=== PATIENT | male | born 1955 | race Caucasian/White ===

== ENCOUNTER 2017-05-16 15:41 | Inpatient (IN) | payer OTHER, MEDICAID ==
[~2017-05-16] VITALS: Ht 160 cm; Wt 76.2 kg
[2017-05-16] MEDS ORDERED: MORPHINE SULFATE 4 MG/ML CPJ (NOT FOR IM USE) IV STA (16:05)
[2017-05-16] MEDS ORDERED: ONDANSETRON HCL 4MG/2ML VIAL IV STA (16:05)
[2017-05-16] MEDS ORDERED: FUROSEMIDE 40MG/4ML VIAL IVP ONE (16:15)
[2017-05-16 16:46] LABS: BASOPHILS % 0.7 % (0.0-2.0); EOSINOPHILS % 1.2 % (0.0-5.0); HEMATOCRIT. 40.9 % (42.0-52.0); LYMPHOCYTES % 13.4 % (20.0-50.0); MEAN CORPUSCULAR VOLUME 99.1 fL (80.0-94.0); MEAN PLATELET VOLUME 8.6 fl (7.4-10.4); MONOCYTES % 10.7 % (2.0-8.0); PLATELET 177 x1000/uL (130-400); RED BLOOD CELL COUNT 4.12 mill/uL (4.7-6.1); RED CELL DISTRIBUTION WIDTH 12.5 % (11.6-14.6)
[2017-05-16 16:52] LABS: CHLORIDE 99 mEq/L (98-107)
[2017-05-16 16:53] LABS: INR 1.1
[2017-05-16 16:58] LABS: CARBON DIOXIDE 23 mEq/L (21-32); ETHANOL BLOOD < 10 mg/dL
[2017-05-16 17:03] LABS: TROPONIN I 0.05 ng/mL (0.00-0.04)
[2017-05-16 20:12] LABS: CLARITY URINE CLOUDY (CLEAR); COLOR URINE YELLOW (YELLOW); GLUCOSE URINE NEGATIVE (NEGATIVE); KETONES URINE NEGATIVE (NEGATIVE); LEUKOCYTE ESTERASE URINE NEGATIVE (NEGATIVE); NITRITE URINE NEGATIVE (NEGATIVE); OCCULT BLOOD URINE 3+ (NEGATIVE); PROTEIN URINE 1+ (NEGATIVE); SPECIFIC GRAVITY URINE 1.009 (1.005-1.030); UROBILINOGEN URINE 0.2 E.U./dL (0.2-1.0)
[2017-05-16 20:27] LABS: *AMPHETAMINES SCREEN URINE NEGATIVE (NEGATIVE); *BARBITURATES SCREEN URINE NEGATIVE (NEGATIVE); *BENZODIAZEPINES SCREEN URINE NEGATIVE (NEGATIVE); *COCAINE SCREEN URINE NEGATIVE (NEGATIVE); CANNABINOID URINE SCREEN NEGATIVE (NEGATIVE); METHADONE URINE SCREEN NEGATIVE (NEGATIVE); OPIATES URINE SCREEN NEGATIVE (NEGATIVE); PHENCYCLIDINE URINE SCREEN NEGATIVE (NEGATIVE)
[2017-05-16] MEDS ORDERED: DIPHENHYDRAMINE 50MG/ML VIAL IV PRN (20:45)
[2017-05-16] MEDS ORDERED: CLONIDINE 0.1MG TABLET PO PRN (20:45)
[2017-05-16] MEDS ORDERED: MAGNESIUM/ALUMINUM HYDROXIDE/SIMETHICONE 30ML UDC PO PRN (20:45)
[2017-05-16] MEDS ORDERED: ACETAMINOPHEN 325MG TABLET PO PRN (20:45)
[2017-05-16] MEDS ORDERED: ONDANSETRON HCL 4MG/2ML VIAL IV PRN (20:45)
[2017-05-16] MEDS ORDERED: HYDROCODONE/APAP 7.5/325MG 1 TAB TABLET PO PRN (21:00)
[2017-05-17 01:00] VITALS: BP 149/67
[2017-05-17 04:00] VITALS: BP 125/67
[2017-05-17] MEDS: MORPHINE SULFATE 4 MG/ML CPJ (NOT FOR IM USE) IV PRN ×2 (04:52→09:14)
[2017-05-17] MEDS: SODIUM CHLORIDE 0.9% INJ 3ML FLUSH IVF SCH ×2 (04:52→14:00)
[2017-05-17 08:00] VITALS: BP 137/68
[2017-05-17] MEDS ORDERED: FUROSEMIDE 40MG/4ML VIAL IVP SCH (09:00)
[2017-05-17] MEDS ORDERED: POTASSIUM CHLORIDE 20MEQ TABLET SR PO SCH (09:00)
[2017-05-17 12:00] VITALS: BP 166/86
[2017-05-17] MEDS ORDERED: LIDOCAINE HCL 1% 20ML VIAL (Pyxis) INJ ONE (13:36)
[2017-05-17] MEDS ORDERED: SODIUM BICARBONATE 4.2% 5 MEQ/10 ML DISP.SYRIN IV ONE (13:36)
[2017-05-17 16:00] VITALS: BP 127/53
[2017-05-17] MEDS ORDERED: IPRATROPIUM/ALBUTEROL 0.5-3(2.5)MG/3ML NEB HHN PRN (16:15)
[2017-05-17] MEDS ORDERED: MULTIVITAMINS,THER W-MINERALS TABLET PO SCH (16:15)
[2017-05-17] MEDS ORDERED: THIAMINE HCL 100MG TABLET PO SCH (16:15)
[2017-05-17] MEDS ORDERED: FOLIC ACID 1MG TABLET PO SCH (16:15)
[2017-05-17 17:41] VITALS: BP 127/53
== END 2017-05-17 18:10 | disposition home or self-care (01) | DRG 432 ==
LOC: ER 16:29 → EDBEDREQ 19:13 → MERGE 19:32 → 6WST 19:32 → EDBEDREQ 19:46 → ENRESERV 23:05
PROVIDERS: ADMIT Internal Medicine; ATTEND Internal Medicine
PROC: 0W9G3ZZ Drainage of Peritoneal Cavity, Percutaneous Approach (ICD-10-PCS; principal; 2017-05-17)
DX: K70.31 Alcoholic cirrhosis of liver with ascites (principal); E43 Unspecified severe protein-calorie malnutrition; J96.00 Acute respiratory failure, unspecified whether with hypoxia or hypercapnia; J98.11 Atelectasis; E87.70 Fluid overload, unspecified; F32.9 Major depressive disorder, single episode, unspecified; I10 Essential (primary) hypertension; F17.210 Nicotine dependence, cigarettes, uncomplicated; R74.0 Nonspecific elevation of levels of transaminase and lactic acid dehydrogenase [LDH]; Z68.29 Body mass index [BMI] 29.0-29.9, adult; Z72.89 Other problems related to lifestyle
CPT/HCPCS: 36415; 49083; 71010; 74000; 80053; 80305; 81001; 83605; 83690; 83880; 84484; 85025; 85610; 93005; 93970; 96374; 96375; 99285; G0482; J1940; J2270; J2405; J3490

== ENCOUNTER 2017-06-10 10:50 | Inpatient (IN) | payer OTHER, MEDICAID ==
[~2017-06-10] VITALS: Ht 160 cm; Wt 71.2 kg
[2017-06-10 16:14] LABS: CHLORIDE 98 mEq/L (98-107)
[2017-06-10 16:16] LABS: BASOPHILS % 0.7 % (0.0-2.0); EOSINOPHILS % 1.4 % (0.0-5.0); HEMATOCRIT. 38.7 % (42.0-52.0); HEMOGLOBIN. 13.6 g/dL (14.0-18.0); LYMPHOCYTES % 10.8 % (20.0-50.0); MEAN CORPUSCULAR HEMOGLOBIN 34.1 pg (28.0-32.0); MEAN PLATELET VOLUME 7.8 fl (7.4-10.4); MONOCYTES % 9.1 % (2.0-8.0); PLATELET 218 x1000/uL (130-400); RED BLOOD CELL COUNT 3.99 mill/uL (4.7-6.1); RED CELL DISTRIBUTION WIDTH 12.5 % (11.6-14.6)
[2017-06-10 16:21] LABS: INR 1.2; PARTIAL THROMBOPLASTIN TIME 29.6 sec (23.4-31.0); PROTHROMBIN TIME 12.1 sec (9.4-11.6)
[2017-06-10 16:22] LABS: CARBON DIOXIDE 18 mEq/L (21-32)
[2017-06-10] MEDS ORDERED: CLONIDINE 0.1MG TABLET PO PRN (18:15)
[2017-06-10] MEDS ORDERED: MAGNESIUM/ALUMINUM HYDROXIDE/SIMETHICONE 30ML UDC PO PRN (18:15)
[2017-06-10] MEDS ORDERED: GUAIFENESIN 200MG/10ML SUGAR FREE UDC PO PRN (18:15)
[2017-06-10] MEDS ORDERED: IPRATROPIUM/ALBUTEROL 0.5-3(2.5)MG/3ML NEB INH PRN (18:15)
[2017-06-10] MEDS ORDERED: ONDANSETRON HCL 4MG/2ML VIAL IV PRN (18:15)
[2017-06-10] MEDS ORDERED: DIPHENHYDRAMINE 50MG/ML VIAL IV PRN (18:15)
[2017-06-10] MEDS ORDERED: LORAZEPAM 2MG/ML CPJ IV PRN (18:15)
[2017-06-10] MEDS ORDERED: NITROGLYCERIN 0.4MG TABLET SL SL PRN (18:15)
[2017-06-10] MEDS ORDERED: ACETAMINOPHEN 325MG TABLET PO PRN (18:15)
[2017-06-10] MEDS ORDERED: DOCUSATE SODIUM 100MG CAPSULE PO PRN (18:15)
[2017-06-10 20:30] LABS: CLARITY URINE TURBID (CLEAR); COLOR URINE DARK YELLOW (YELLOW); GLUCOSE URINE NEGATIVE (NEGATIVE); KETONES URINE NEGATIVE (NEGATIVE); LEUKOCYTE ESTERASE URINE 1+ (NEGATIVE); NITRITE URINE NEGATIVE (NEGATIVE); OCCULT BLOOD URINE 3+ (NEGATIVE); PROTEIN URINE 3+ (NEGATIVE); SPECIFIC GRAVITY URINE 1.019 (1.005-1.030); UROBILINOGEN URINE 0.2 E.U./dL (0.2-1.0)
[2017-06-10] MEDS ORDERED: ZOLPIDEM TARTRATE 5MG TABLET PO PRN (20:30)
[2017-06-10] MEDS ORDERED: NA PHOS,M-B/NA PHOS,DI-BA ENEMA 118ML PR PRN (20:30)
[2017-06-10 20:41] LABS: *AMPHETAMINES SCREEN URINE NEGATIVE (NEGATIVE); *BARBITURATES SCREEN URINE NEGATIVE (NEGATIVE); *BENZODIAZEPINES SCREEN URINE NEGATIVE (NEGATIVE); *COCAINE SCREEN URINE NEGATIVE (NEGATIVE); CANNABINOID URINE SCREEN NEGATIVE (NEGATIVE); METHADONE URINE SCREEN NEGATIVE (NEGATIVE); OPIATES URINE SCREEN NEGATIVE (NEGATIVE); PHENCYCLIDINE URINE SCREEN NEGATIVE (NEGATIVE)
[2017-06-10 21:00] VITALS: BP 144/71
[2017-06-10 22:11] VITALS: BP 136/71
[2017-06-10] MEDS: FAMOTIDINE 20MG/2ML VIAL IV SCH (22:19)
[2017-06-10] MEDS: SUCRALFATE 1 G/10 ML UDC PO SCH (22:19)
[2017-06-10] MEDS: METOPROLOL TARTRATE 25MG TABLET PO SCH (22:20)
[2017-06-10] MEDS: TRAMADOL 50MG TABLET PO PRN (22:20)
[2017-06-10] MEDS: ALBUMIN HUMAN 25GM/100ML (25%) IV SCH (23:13)
[2017-06-11] VITALS: BP 128/58
[2017-06-11] MEDS: CEFTRIAXONE 1 G PREMIX 50 ML IV SCH (01:20)
[2017-06-11 08:00] VITALS: BP 112/60
[2017-06-11] MEDS: METOPROLOL TARTRATE 25MG TABLET PO SCH ×2 (09:00→20:49)
[2017-06-11] MEDS: TRAMADOL 50MG TABLET PO PRN ×2 (10:56→18:34)
[2017-06-11 12:00] VITALS: BP_SYST 122; BP_DIAS 60; BP_DIAS 68
[2017-06-11] MEDS: SUCRALFATE 1 G/10 ML UDC PO SCH ×3 (12:20→20:49)
[2017-06-11] MEDS ORDERED: TRAM50TA3 PO (12:23)
[2017-06-11] MEDS ORDERED: FURO40TA5 PO (12:23)
[2017-06-11] MEDS ORDERED: OMEP20CA10 PO (12:23)
[2017-06-11] MEDS ORDERED: SPIR50TA26 PO (12:23)
[2017-06-11 12:58] LABS: BASOPHILS % 0.6 % (0.0-2.0); EOSINOPHILS % 2.1 % (0.0-5.0); HEMATOCRIT. 34.5 % (42.0-52.0); HEMOGLOBIN. 11.9 g/dL (14.0-18.0); LYMPHOCYTES % 13.5 % (20.0-50.0); MEAN CORPUSCULAR HEMOGLOBIN 33.3 pg (28.0-32.0); MEAN CORPUSCULAR VOLUME 96.4 fL (80.0-94.0); MEAN PLATELET VOLUME 8.4 fl (7.4-10.4); MONOCYTES % 13.3 % (2.0-8.0); NEUTROPHILS % 70.5 % (40.0-76.0); PLATELET 206 x1000/uL (130-400); RED BLOOD CELL COUNT 3.58 mill/uL (4.7-6.1); RED CELL DISTRIBUTION WIDTH 12.5 % (11.6-14.6)
[2017-06-11 13:23] LABS: CARBON DIOXIDE 20 mEq/L (21-32); CHLORIDE 99 mEq/L (98-107)
[2017-06-11] MEDS ORDERED: LIDOCAINE HCL 1% 20ML VIAL (Pyxis) INJ ONE (14:09)
[2017-06-11] MEDS ORDERED: SODIUM BICARBONATE 4% (2.4MEQ) 5ML VIAL IV ONE (14:10)
[2017-06-11] MEDS: ALBUMIN HUMAN 25GM/100ML (25%) IV SCH (15:58)
[2017-06-11 16:00] VITALS: BP 125/53
[2017-06-11] MEDS: SODIUM CHLORIDE 0.9% 1,000 ML IV SCH (16:52)
[2017-06-11 20:00] VITALS: BP 120/54
[2017-06-11 20:39] LABS: CLARITY URINE CLOUDY (CLEAR); COLOR URINE YELLOW (YELLOW); GLUCOSE URINE NEGATIVE (NEGATIVE); KETONES URINE NEGATIVE (NEGATIVE); LEUKOCYTE ESTERASE URINE 1+ (NEGATIVE); NITRITE URINE NEGATIVE (NEGATIVE); OCCULT BLOOD URINE 3+ (NEGATIVE); PROTEIN URINE 3+ (NEGATIVE); SPECIFIC GRAVITY URINE 1.018 (1.005-1.030); UROBILINOGEN URINE 0.2 E.U./dL (0.2-1.0)
[2017-06-11] MEDS: FAMOTIDINE 20MG/2ML VIAL IV SCH (20:49)
[2017-06-12] VITALS: BP 113/63
[2017-06-12] MEDS: SODIUM CHLORIDE 0.9% 1,000 ML IV SCH ×2 (00:03→10:45)
[2017-06-12] MEDS: CEFTRIAXONE 1 G PREMIX 50 ML IV SCH (00:03)
[2017-06-12 04:00] VITALS: BP 118/52
[2017-06-12] MEDS: SUCRALFATE 1 G/10 ML UDC PO SCH (06:29)
[2017-06-12 06:42] LABS: BASOPHILS % 0.7 % (0.0-2.0); EOSINOPHILS % 2.8 % (0.0-5.0); HEMATOCRIT. 36.7 % (42.0-52.0); HEMOGLOBIN. 12.7 g/dL (14.0-18.0); LYMPHOCYTES % 18.7 % (20.0-50.0); MEAN CORPUSCULAR HEMOGLOBIN 33.5 pg (28.0-32.0); MEAN CORPUSCULAR VOLUME 96.5 fL (80.0-94.0); MEAN PLATELET VOLUME 8.3 fl (7.4-10.4); MONOCYTES % 11.9 % (2.0-8.0); NEUTROPHILS % 65.9 % (40.0-76.0); PLATELET 195 x1000/uL (130-400); RED CELL DISTRIBUTION WIDTH 12.3 % (11.6-14.6)
[2017-06-12 07:07] LABS: PHOSPHORUS 6.6 mg/dL (2.5-4.9)
[2017-06-12 08:00] VITALS: BP 108/53
[2017-06-12 08:20] LABS: HEPATITIS B SURFACE ANTIGEN NEGATIVE
[2017-06-12 08:47] LABS: HEPATITIS B CORE AB IGM NEGATIVE
[2017-06-12 08:49] LABS: HEPATITIS A AB IGM NEGATIVE (NEGATIVE)
[2017-06-12] MEDS: METOPROLOL TARTRATE 25MG TABLET PO SCH (08:59)
[2017-06-12 12:18] VITALS: BP 108/53
[2017-06-15 09:07] LABS: ALPHA FETOPROTEIN TUMOR MARKER 4.8 ng/mL (0.0-8.3)
[2017-06-15 10:12] LABS: COMPLEMENT C3 78 mg/dL (82-167)
== END 2017-06-12 12:45 | disposition home or self-care (01) | DRG 432 ==
LOC: ER 10:50 → 6EST 17:39 → EDBEDREQ 17:47 → ENRESERV 19:12
PROVIDERS: ADMIT Internal Medicine; ATTEND Internal Medicine
PROC: 0W9G3ZZ Drainage of Peritoneal Cavity, Percutaneous Approach (ICD-10-PCS; principal; 2017-06-11)
DX: K70.31 Alcoholic cirrhosis of liver with ascites (principal); E43 Unspecified severe protein-calorie malnutrition; N17.9 Acute kidney failure, unspecified; E87.1 Hypo-osmolality and hyponatremia; N39.0 Urinary tract infection, site not specified; D63.8 Anemia in other chronic diseases classified elsewhere; F10.21 Alcohol dependence, in remission; E88.09 Other disorders of plasma-protein metabolism, not elsewhere classified; F17.210 Nicotine dependence, cigarettes, uncomplicated; Z68.27 Body mass index [BMI] 27.0-27.9, adult
CPT/HCPCS: 36415; 49083; 71010; 74176; 76770; 80048; 80053; 80305; 81001; 82105; 82570; 83036; 83735; 83935; 84100; 84156; 84300; 85025; 85610; 85730; 86160; 86705; 86709; 86803; 87040; 87086; 87186; 87340; 93970; 99285; J0696; J3490; J7030; J7050; P9047

== ENCOUNTER 2017-06-15 17:19 | Emergency (ER) | payer OTHER, MEDICAID ==
[~2017-06-15] VITALS: Ht 160 cm; Wt 50.0 kg
[~2017-06-15 17:19] MED LIST: FURO40TA5 PO; OMEP20CA10 PO; SPIR50TA26 PO; TRAM50TA3 PO
[2017-06-15 18:52] LABS: BASOPHILS % 0.9 % (0.0-2.0); EOSINOPHILS % 2.2 % (0.0-5.0); HEMATOCRIT. 41.4 % (42.0-52.0); HEMOGLOBIN. 14.1 g/dL (14.0-18.0); LYMPHOCYTES % 13.5 % (20.0-50.0); MEAN CORPUSCULAR HEMOGLOBIN 33.1 pg (28.0-32.0); MEAN CORPUSCULAR VOLUME 97.3 fL (80.0-94.0); MEAN PLATELET VOLUME 7.5 fl (7.4-10.4); MONOCYTES % 11.9 % (2.0-8.0); NEUTROPHILS % 71.5 % (40.0-76.0); PLATELET 224 x1000/uL (130-400); RED BLOOD CELL COUNT 4.25 mill/uL (4.7-6.1); RED CELL DISTRIBUTION WIDTH 12.6 % (11.6-14.6)
[2017-06-15 18:57] LABS: INR 1.1; PARTIAL THROMBOPLASTIN TIME 29.1 sec (23.4-31.0)
[2017-06-15 19:05] LABS: CARBON DIOXIDE 20 mEq/L (21-32); CHLORIDE 101 mEq/L (98-107); CREATINE KINASE 78 IU/L (39-308)
[2017-06-15 19:43] LABS: TROPONIN I 0.04 ng/mL (0.00-0.04)
[2017-06-15 20:32] VITALS: BP 128/66
== END 2017-06-15 20:50 | disposition home or self-care (01) ==
LOC: ER 17:19
DX: N28.9 Disorder of kidney and ureter, unspecified (principal); K74.60 Unspecified cirrhosis of liver; F17.200 Nicotine dependence, unspecified, uncomplicated
CPT/HCPCS: 36415; 80053; 82550; 83690; 83880; 84443; 84484; 85025; 85610; 85730; 93005; 99285

== ENCOUNTER 2017-06-24 11:26 | Emergency (ER) | payer OTHER, MEDICAID ==
[~2017-06-24] VITALS: Ht 160 cm; Wt 65.0 kg
[2017-06-24 11:57] LABS: BASOPHILS % 0.8 % (0.0-2.0); EOSINOPHILS % 1.7 % (0.0-5.0); HEMATOCRIT. 41.5 % (42.0-52.0); HEMOGLOBIN. 14.6 g/dL (14.0-18.0); LYMPHOCYTES % 14.3 % (20.0-50.0); MEAN CORPUSCULAR HEMOGLOBIN 34.1 pg (28.0-32.0); MEAN CORPUSCULAR VOLUME 96.8 fL (80.0-94.0); MEAN PLATELET VOLUME 7.5 fl (7.4-10.4); MONOCYTES % 7.1 % (2.0-8.0); NEUTROPHILS % 76.1 % (40.0-76.0); PLATELET 218 x1000/uL (130-400); RED BLOOD CELL COUNT 4.29 mill/uL (4.7-6.1); RED CELL DISTRIBUTION WIDTH 12.3 % (11.6-14.6)
[2017-06-24 12:06] LABS: INR 1.1; PARTIAL THROMBOPLASTIN TIME 30.5 sec (23.4-31.0); PROTHROMBIN TIME 11.3 sec (9.4-11.6)
[2017-06-24] MEDS ORDERED: LIDOCAINE HCL 1% 20ML VIAL (Pyxis) INJ ONE (13:42)
[2017-06-24] MEDS ORDERED: SODIUM BICARBONATE 4% (2.4MEQ) 5ML VIAL IV ONE (13:42)
[2017-06-24] MEDS ORDERED: TRAMADOL 50MG TABLET PO ONE (15:00)
[2017-06-24 15:30] VITALS: BP 112/60
== END 2017-06-24 15:38 | disposition home or self-care (01) ==
LOC: ER 11:26
DX: R10.9 Unspecified abdominal pain (principal); R18.8 Other ascites; I10 Essential (primary) hypertension
CPT/HCPCS: 36415; 49083; 85025; 85610; 85730; 99285; J3490